=== PATIENT | male | born 1985 | race Asian ===

== ENCOUNTER 2025-07-25 08:02 | Emergency (ER) | payer OTHER ==
[~2025-07-25] VITALS: Ht 162.6 cm; Wt 75.0 kg
[2025-07-25 08:05] VITALS: TEMP 100.2
[2025-07-25] MEDS ORDERED: LOSA-382 PO (08:11)
[2025-07-25] MEDS ORDERED: METF-1211 PO (08:11)
[2025-07-25] MEDS ORDERED: ALLO-97 PO (08:11)
[2025-07-25] MEDS ORDERED: ATOR20TA PO (08:11)
[2025-07-25] MEDS: CefTRIAXone SODIUM 1 GM/VIAL IM ONE (08:35)
[2025-07-25] MEDS: AZITHROMYCIN 500 MG TABLET PO ONE (08:35)
[2025-07-25] MEDS: LIDOCAINE/PF 1% 2 ML VIAL IM ONE (08:35)
[2025-07-25 09:21] VITALS: BP 141/80; PULSE 96; RESP 16; O2SAT 99
== END 2025-07-25 09:55 | disposition home or self-care (01) ==
LOC: EMS 08:06
DX: A54.9 Gonococcal infection, unspecified (principal); E11.9 Type 2 diabetes mellitus without complications; E78.00 Pure hypercholesterolemia, unspecified; I10 Essential (primary) hypertension; M10.9 Gout, unspecified; Z79.899 Other long term (current) drug therapy; Z90.49 Acquired absence of other specified parts of digestive tract
CPT/HCPCS: 99283; 82962; 96372; J0456; J0696; J3490